=== PATIENT | female | born 1950 | race Caucasian/White ===

== ENCOUNTER → 2022-04-09 | Day surgery (SDC) | payer BC ==
[~2022-04-09] MED LIST: Dexmedetomidine 200 MCG/2 ML SDV ONE; Lactated Ringers 1,000 ML IV ONE; Lidocaine 1% 5 ML VIAL INFILT ONE; Propofol 200 MG/20 ML SDV ONE; Scopolamine 1.5 MG Transdermal Patch TOP ONE; fentaNYL 100 MCG/2 ML SDV ONE
[2022-05-16 16:43] LABS: BLOOD UREA NITROGEN,BUN 17 mg/dL (7.0-18.0); CARBON DIOXIDE,CO2 28.4 mmol/L (21.0-32.0); CHLORIDE,CL 103 mmol/L (98-107); ESTIMATED GFR 79 mL/min (>60); GLUCOSE RANDOM 106 mg/dL (74-106); POTASSIUM,K 4.5 mmol/L (3.5-5.1); SODIUM,NA 140 mmol/L (136-145)
== END ==
LOC: MW.SDS 06:00
PROVIDERS: ATTEND Obstetrics & Gynecology
DX: N84.1 Polyp of cervix uteri (principal); R93.89 Abnormal findings on diagnostic imaging of other specified body structures; N73.6 Female pelvic peritoneal adhesions (postinfective); E03.9 Hypothyroidism, unspecified; M81.0 Age-related osteoporosis without current pathological fracture; Z98.890 Other specified postprocedural states; Z79.899 Other long term (current) drug therapy; Z79.890 Hormone replacement therapy; Z85.3 Personal history of malignant neoplasm of breast
CPT/HCPCS: 58558; 58559; 80053; A9270; J0131; J2704; J3010; J7120; 00952; 36415; 85025; 99100